=== PATIENT | male | born 2000 | race Caucasian/White ===

== ENCOUNTER 2021-05-09 12:07 | Emergency (ER) | payer MEDICAID ==
[~2021-05-09] VITALS: Ht 172.7 cm; Wt 70.3 kg
[2021-05-09] MEDS ORDERED: SULF1TAB48 PO (12:43)
[2021-05-09] MEDS ORDERED: CEPH500C2 PO (12:43)
--- NOTE | 2021-05-09 12:44 | NUR ---
BIBS FOR C/O PILONIDAL CYST X 1 MONTH. C/O PAIN AND ITCHING . RATES PAIN 5/10. WILL CONTINUE TO MONITOR THE PATIENT.
--- NOTE | 2021-05-09 12:51 | NUR ---
Patient discharged to home in stable condition. Written and verbal after care instructions given. Patient verbalizes understanding of instruction.
[2021-05-09 12:52] VITALS: BP 119/65
== END 2021-05-09 12:52 | disposition home or self-care (01) ==
LOC: ER 12:07
DX: L05.01 Pilonidal cyst with abscess (principal)